=== PATIENT | female | born 1990 | race Asian ===

== ENCOUNTER → 2020-07-31 | Outpatient (CLI) | payer MEDICAID, OTHER ==
--- NOTE | 2020-07-31 14:04 | RAD ---
EXAM: Obstetrics sonogram. HISTORY: Small for dates. TECHNIQUE: Sonographic imaging of a gravid uterus was performed. COMPARISON: None. FINDINGS: The uterus measures 17.3 x 11.6 x 8.0 cm. There is a single intrauterine fetus with a crown -rump length of 7.65 cm, corresponding with a gestational age of 13 weeks and 5 days. There is a norm al heart rate of 153 bpm. The gestational sac is normal in consideration and location. The amni otic fluid volume is normal. There is complete placenta previa. The maternal ovaries are obscured. Th e cervix is normal in length. IMPRESSION: 1. Single imaging fetus with normal heart rate and gestational age based on ultrasound measurements o f 13 weeks and 5 days. 2. Complete placenta previa. Electronically signed by: Nikole Briggs MD (07/31/2020 2:01 PM) [id number]
== END ==
LOC: US 12:19
PROVIDERS: ATTEND Family Medicine
DX: O44.01 Complete placenta previa NOS or without hemorrhage, first trimester (principal); O26.841 Uterine size-date discrepancy, first trimester; Z3A.13 13 weeks gestation of pregnancy
CPT/HCPCS: 76801

== ENCOUNTER → 2020-12-11 | Outpatient (CLI) | payer OTHER ==
--- NOTE | 2020-12-11 10:00 | RAD ---
EXAM: OB ULTRASOUND, > 14 WEEKS HISTORY: Large for dates. COMPARISON: 07/31/2020. TECHNIQUE: Multiple grayscale images, color Doppler, and M-mode images of the uterus are obtained. FINDINGS: There is a single intrauterine gestation in cephalic presentation. The placenta is grade 2 and anteri or in location without evidence of placenta previa. The amount of amniotic fluid appears appropriate. Amniotic fluid index is upper normal at 24 cm. Cervical length is 5.4 cm. Biometrical data: BPD = 8.39 cm for 33 weeks 5 days. HC = 31.10 cm for 34 weeks 5 days. AC = 31.69 cm for 35 weeks 4 days. FL = 6.44 cm for 33 weeks 2 days. HC/AC ratio = 0.98. Overall, the estimated sonographic gestational age is 34 weeks and 2 days for an estimated date of de livery of 01/20/2021. The estimated date of delivery provided by the last menstrual period is 02/07/2021 . Estimated weight is 2496 grams. This corresponds with the 85th percentile for a gestational age of 31 weeks and 5 days based on LMP. The heart rate is 135 bpm. The anatomy is not formally assessed. The maternal adnexal regions are not formally assessed. IMPRESSION: 1. Single intrauterine fetus with a normal heart rate and gestational age based on ultrasound measure ments of 34 weeks and 2 days. The estimated weight is at the 85th percentile for a gestational age of 31 weeks and 5 days based on LMP. 2. Upper limits of normal GENNARO of 24 cm. Electronically signed by: Nikole Briggs MD (12/11/2020 9:58 AM) [id number]
== END ==
LOC: US 07:47
PROVIDERS: ATTEND Family Medicine
DX: O36.63X0 Maternal care for excessive fetal growth, third trimester, not applicable or unspecified (principal); Z3A.34 34 weeks gestation of pregnancy
CPT/HCPCS: 76805

== ENCOUNTER → 2021-01-22 | Outpatient (CLI) | payer OTHER ==
--- NOTE | 2021-01-22 13:03 | RAD ---
EXAM: OBSTETRIC ULTRASOUND. HISTORY: Assess position. COMPARISON: None. FINDINGS: Sonographic evaluation of the uterus, fetus and maternal pelvis was performed. There is a single fetus in vertex presentation. heart rate is 145 bpm. Estimated gestational ag e based on measurements is 40 weeks 4 days. Head circumference is 35.9 cm, above the nomogram range. Biparietal diameter, abdominal circumference and femur length are commensurate with gestational age. There is no hydrocephalus. Estimated weight is 4237 g, at 97th percentile. The placenta is anterior. There is no evidence of placenta previa. The maternal adnexa are obscured b y positioning currently. IMPRESSION: 1. Single fetus in vertex presentation. heart rate 145 bpm. Estimated gestational age based on measurements is 40 weeks 4 days. Estimated weight 4237 g, at 97th percentile. Head circumferen ce is above the nomogram range. Electronically signed by: Ravin Grayson MD (01/22/2021 1:00 PM) [id number]
== END ==
LOC: US 10:41
PROVIDERS: ATTEND Family Medicine
DX: Z36.89 Encounter for other specified antenatal screening (principal); Z3A.40 40 weeks gestation of pregnancy
CPT/HCPCS: 76815